=== PATIENT | female | born 1955 | race Caucasian/White ===

== ENCOUNTER 2017-10-09 18:13 | Emergency (ER) | payer OTHER, MEDICARE ==
[~2017-10-09] VITALS: Ht 162.6 cm; Wt 70.0 kg
[2017-10-09 18:18] VITALS: BP 128/68; PULSE 108; RESP 17; TEMP 98.2; O2SAT 99
[2017-10-09] MEDS ORDERED: FOLI400T PO (18:35)
[2017-10-09] MEDS ORDERED: METH0.35 (18:35)
[2017-10-09] MEDS ORDERED: PROP60 PO (18:35)
[2017-10-09] MEDS ORDERED: PRIL20TA2 PO (18:35)
[2017-10-09] MEDS ORDERED: ZANT150T2 PO (18:35)
[2017-10-09] MEDS ORDERED: ATEN50TA PO (18:35)
[2017-10-09] MEDS ORDERED: ZOFR4TAB PO (18:35)
[2017-10-09] MEDS ORDERED: AMLO5 PO (18:35)
[2017-10-09] MEDS ORDERED: LOMO2.5T PO (18:35)
[2017-10-09] MEDS ORDERED: PRED5TAB PO (18:35)
[2017-10-09 18:39] VITALS: BP 139/74; PULSE 105; RESP 18; O2SAT 98
[2017-10-09] MEDS ORDERED: SODIUM CHLOR 0.9% 1000 ML INJ 1,000 ML IV ONE (18:42)
[2017-10-09] MEDS ORDERED: SODIUM CHLORIDE 0.9% FLUSH 10 ML FLUSH IVF PRN (18:45)
[2017-10-09 19:07] VITALS: BP 139/74; PULSE 118; RESP 14; O2SAT 94
--- NOTE | 2017-10-09 19:09 | PD ---
HPI Chief Complaint: OD/ Ingestion Time Seen by Provider: 18:55 Travel History International Travel<30 days: No Contact w/Intl Traveler<30days: No Traveled to known affect area: No History of Present Illness HPI 62 YO F with PMH of lupus presents to the ED via EMS under Barone Act for evaluation of suicidal ideation. According to the Barone act paper work the patient took a bottle of sleeping pills and advised her that she did not wish to live anymore. On arrival the patient is somnolent, arouses to voice. She repeatedly asks "Where am I?" She is unable to provide any meaningful history. PFSH Past Medical History Medical History: Unable to Obtain Autoimmune Disease: Yes (lupus) Past Surgical History Surgical History: Unable to Obtain Social History Alcohol Use: Yes Tobacco Use: No Substance Use: No Allergies-Medications (Allergen,Severity, Reaction): Coded Allergies: No Known Allergies (Unverified , 10/09/17) Reported Meds & Prescriptions Reported Meds & Active Scripts Active Reported Prilosec (Omeprazole Magnesium) 20 Mg Tab Zantac (Ranitidine HCl) 150 Mg Tab 150 Mg PO BID Lomotil (Diphenoxylate-Atropine) 2.5-0.025 Mg Tab 1 Tab PO Q6H PRN Zofran (Ondansetron HCl) 4 Mg Tab 4 Mg PO Q12HR PRN Inderal LA 24 HR (Propranolol HCl) 60 Mg Cap 10 Mg PO DAILY Norvasc (Amlodipine Besylate) 5 Mg Tab 5 Mg PO DAILY Atenolol 50 Mg Tab 50 Mg PO BID Rasuvo (Methotrexate (Antirheumatic)) 20 Mg/0.4 Ml Inj Prednisone 5 Mg Tab 5 Mg PO BID Folic Acid 0.4 Mg Tab 1,000 Mcg PO DAILY Review of Systems Except as stated in HPI: all other systems reviewed are Neg Physical Exam Narrative GENERAL: Well-nourished, well-developed obese, somnolent white female in no acute distress. SKIN: Focused skin assessment warm/dry. HEAD: Normocephalic. EYES: No scleral icterus. No injection or drainage. Pupils 2-3 mm and reactive bilaterally. NECK: Supple, trachea midline. No JVD or lymphadenopathy. Patient is protecting her airway. CARDIOVASCULAR: Regular rate and rhythm without murmurs, gallops, or rubs. RESPIRATORY: Breath sounds clear and equal bilaterally. No accessory muscle use. GASTROINTESTINAL: Abdomen soft, non-tender, nondistended. Active bowel sounds. MUSCULOSKELETAL: No cyanosis, or edema. BACK: Nontender without obvious deformity. No CVA tenderness. Data Data Last Documented VS Vital Signs Date Time Temp Pulse Resp B/P (MAP) Pulse Ox O2 Delivery O2 Flow Rate FiO2 10/09/17 19:08 118 14 95 Room Air 10/09/17 19:07 139/74 (95) 10/09/17 18:18 98.2 Orders Orders Electrocardiogram (10/09/17 18:42) Complete Blood Count With Diff (10/09/17 18:42) Comprehensive Metabolic Panel (10/09/17 18:42) Urinalysis - C+S If Indicated (10/09/17 18:42) Iv Access Insert/Monitor (10/09/17 18:42) Ecg Monitoring (10/09/17 18:42) Oximetry (10/09/17 18:42) Sodium Chloride 0.9% Flush (Ns Flush) (10/09/17 18:45) Sodium Chlor 0.9% 1000 Ml Inj (Ns 1000 M (10/09/17 18:42) Call Poison Control (10/09/17 18:42) Drug Screen, Random Urine (10/09/17 18:42) Alcohol (Ethanol) (10/09/17 18:42) Salicylates (Aspirin) (10/09/17 18:42) Tylenol (Acetaminophen) (10/09/17 18:42) Psych Screen (10/09/17 18:42) Thyroid Stimulating Hormone (10/09/17 18:42) Cath For Specimen (10/09/17 18:53) Calcium Carbonate Chew (Tums Chew) (10/09/17 21:30) Diet Heart Healthy (10/09/17 Dinner) Labs Laboratory Tests Test 10/09/17 19:05 10/09/17 19:15 10/09/17 20:10 Blood Urea Nitrogen 16 MG/DL Creatinine 0.70 MG/DL Random Glucose 79 MG/DL Total Protein 6.0 GM/DL Albumin 3.3 GM/DL Calcium Level 7.6 MG/DL Alkaline Phosphatase 90 U/L Aspartate Amino Transf (AST/SGOT) 64 U/L Alanine Aminotransferase (ALT/SGPT) 47 U/L Total Bilirubin 0.4 MG/DL Sodium Level 145 MEQ/L Potassium Level 3.5 MEQ/L Chloride Level 113 MEQ/L Carbon Dioxide Level 20.0 MEQ/L Anion Gap 12 MEQ/L Estimat Glomerular Filtration Rate 85 ML/MIN Thyroid Stimulating Hormone 3rd Gen 0.909 uIU/ML Salicylates Level LESS THAN 1.7 MG/DL Acetaminophen Level LESS THAN 2.0 MCG/ML Ethyl Alcohol Level 253 MG/DL Urine Color YELLOW Urine Turbidity CLEAR Urine pH 5.0 Urine Specific [place] 1.016 Urine Protein NEG mg/dL Urine Glucose (UA) NEG mg/dL Urine Ketones NEG mg/dL Urine Occult Blood NEG Urine Nitrite NEG Urine Bilirubin NEG Urine Urobilinogen LESS THAN 2.0 MG/DL Urine Leukocyte Esterase NEG Urine WBC 1 /hpf Urine Hyaline Casts 41 /lpf Urine Mucus FEW /lpf Microscopic Urinalysis Comment CULT NOT INDICATED Urine Opiates Screen NEG Urine Barbiturates Screen NEG Urine Amphetamines Screen NEG Urine Benzodiazepines Screen POS Urine Cocaine Screen NEG Urine Cannabinoids Screen POS White Blood Count 4.1 TH/MM3 Red Blood Count 4.55 MIL/MM3 Hemoglobin 15.5 GM/DL Hematocrit 44.8 % Mean Corpuscular Volume 98.4 FL Mean Corpuscular Hemoglobin 34.1 PG Mean Corpuscular Hemoglobin Concent 34.7 % Red Cell Distribution Width 14.3 % Platelet Count 280 TH/MM3 Mean Platelet Volume 8.2 FL Neutrophils (%) (Auto) 50.2 % Lymphocytes (%) (Auto) 41.7 % Monocytes (%) (Auto) 5.8 % Eosinophils (%) (Auto) 0.9 % Basophils (%) (Auto) 1.4 % Neutrophils # (Auto) 2.1 TH/MM3 Lymphocytes # (Auto) 1.7 TH/MM3 Monocytes # (Auto) 0.2 TH/MM3 Eosinophils # (Auto) 0.0 TH/MM3 Basophils # (Auto) 0.1 TH/MM3 CBC Comment DIFF FINAL Differential Comment MDM Medical Decision Making Medical Screen Exam Complete: Yes Emergency Medical Condition: Yes Differential Diagnosis Intentional overdose versus metabolic derangement versus Adjustment disorder versus anxiety versus bipolar versus depression versus dementia versus electrolyte disorder versus malingering versus mood disorder versus ODD versus psychosis versus PTSD versus schizophrenia versus schizoaffective disorder versus substance-induced mood disorder versus other Narrative Course 62-year-old female presents to the ED via EMS under Barone act after taking unknown quantity of benzodiazepines an attempt to end her life. Temp 98 2, pulse 108, respiratory rate 17, pulse ox 98% on room air, BP 128/68 on arrival. On exam the patient is somnolent, arouses easily to voice. She looks around the room and repeatedly asks "Where am I?" She is unable to provide any meaningful history. IV was established. Patient was administered 1 L normal saline. Present control was called and requested the patient continued to be monitored. EKG rate 114, sinus tachycardia with short TN interval. TN interval 1:15, QRS 81, QTc 402 ms. No axis. No acute ST changes. Reviewed by Dr. Danielson. CBC: CBC 4.1. Hemoglobin 15.5. CMP: BUN 16, creatinine 0.70. Calcium 7.6. UA: No culture indicated. Tox screen positive for alcohol of 253, diazepam and cannabinoids. On recheck the patient is more alert. Her has her hearing aids at bedside and we're able to converse. She states that she has a history of lupus NRA and has been seeing the same position for approximately 20 years. That Physician retired in June and the patient is having difficulty finding a new provider. She states that she was taking pain medications for a long period of time and now is unable to procure these. She states that she called 20 doctors looking for a new physician and her insurance company as well. She states that she felt very defeated and down and that is why she took the medications. She denies previous suicide attempt or history of depression. She denies suicidal ideation at this time. She is requesting food and drink. This was provided. We'll continue to monitor the patient until vitals normalize. She is medically cleared for psychiatric evaluation. Diagnosis Primary Impression: Intentional benzodiazepine overdose Qualified Codes: T42.4X2A - Poisoning by benzodiazepines, intentional self- harm, initial encounter Amanda Vogel Oct 09, 2017 19:09
[2017-10-09 19:41] LABS: ALT (GPT) 47 U/L (10-53)
[2017-10-09 19:51] LABS: ALBUMIN 3.3 GM/DL (3.4-5.0); AST (GOT) 64 U/L (15-37); BLOOD UREA NITROGEN 16 MG/DL (7-18); CALCIUM 7.6 MG/DL (8.5-10.1); CHLORIDE 113 MEQ/L (98-107); GLOMERULAR FILTRATION RATE 85 ML/MIN (>89); GLUCOSE,RANDOM 79 MG/DL (74-106); SODIUM (NA) 145 MEQ/L (136-145)
[2017-10-09 19:52] LABS: ACETAMINOPHEN LESS THAN 2.0 MCG/ML (10.0-30.0); ALKALINE PHOSPHATASE 90 U/L (45-117); TOTAL BILIRUBIN ADULT 0.4 MG/DL (0.2-1.0)
[2017-10-09 20:25] LABS: BILIRUBIN, URINE NEG (NEG); BLOOD, URINE NEG (NEG); GLUCOSE,URINE NEG (NEG); HYALINE CAST, URINE 41 /lpf (RARE); KETONE, URINE NEG (NEG); MUCUS URINE FEW /lpf (OCC); NITRITE,URINE NEG (NEG); URINE COLOR YELLOW (YELLW/STRAW); URINE LEUKOCYTE ESTERASE NEG (NEG)
[2017-10-09 20:32] LABS: AUTOMATED NEUTROPHIL # 2.1 TH/MM3 (1.8-7.7); BASOPHIL # 0.1 TH/MM3 (0-0.2); BASOPHIL % 1.4 % (0.0-2.0); EOSINOPHIL % 0.9 % (0.0-4.0); HEMATOCRIT 44.8 % (35.0-46.0); HEMOGLOBIN 15.5 GM/DL (11.6-15.3); LYMPH % 41.7 % (9.0-44.0); LYMPHOCYTE # 1.7 TH/MM3 (1.0-4.8); MEAN CELL VOLUME 98.4 FL (80.0-100.0); MEAN CORPUSCULAR HEMOGLOBIN 34.1 PG (27.0-34.0); MEAN CORPUSCULAR HGB CONC 34.7 % (32.0-36.0); MEAN PLATELET VOLUME 8.2 FL (7.0-11.0); MONO % 5.8 % (0.0-8.0); MONOCYTE # 0.2 TH/MM3 (0-0.9); NEUT % 50.2 % (16.0-70.0); PLATELET COUNT 280 TH/MM3 (150-450); RED BLOOD COUNT 4.55 MIL/MM3 (4.00-5.30); RED CELL DISTRIBUTION WIDTH 14.3 % (11.6-17.2); WHITE BLOOD COUNT 4.1 TH/MM3 (4.0-11.0)
[2017-10-09] MEDS ORDERED: CALCIUM CARBONATE 500 MG CHEWABLE TAB CHEW ONE (21:30)
--- NOTE | 2017-10-09 22:22 | PD ---
Physical Exam Narrative I, Dr. Danielson, have reviewed the advance practice practitioner's documentation and am in agreement, met with the patient face to face, made the diagnosis, and the medical decision making was done by me. *My assessment and Findings: Suicidal attempt vs. overdose 62yo F here under barajas act after suicidal attempt by taking 10 pill so tamezepine 30mg PO at 2pm today. Said she was tire of living. Pt was initially very sleepy and mumbles but moves all extremities. Pt given NS IVF and reevaluated at bedside. Pt is now much more awake and answering questions. Labs reviewed, no leukocytosis. Hypochloremia at 113. TSH normal. Blood alcohol elevated at 253. Acetaminophen negative. Salicylate negative. Utox positive for benzodiazepine and cannabinoids. UA negative. Calcium low and replaced. HR is now in the 90s. Pt is medically clear for psych evaluation. Data Data Last Documented VS Vital Signs Date Time Temp Pulse Resp B/P (MAP) Pulse Ox O2 Delivery O2 Flow Rate FiO2 10/09/17 19:08 118 14 95 Room Air 10/09/17 19:07 139/74 (95) 10/09/17 18:18 98.2 Orders Orders Electrocardiogram (10/09/17 18:42) Complete Blood Count With Diff (10/09/17 18:42) Comprehensive Metabolic Panel (10/09/17 18:42) Urinalysis - C+S If Indicated (10/09/17 18:42) Iv Access Insert/Monitor (10/09/17 18:42) Ecg Monitoring (10/09/17 18:42) Oximetry (10/09/17 18:42) Sodium Chloride 0.9% Flush (Ns Flush) (10/09/17 18:45) Sodium Chlor 0.9% 1000 Ml Inj (Ns 1000 M (10/09/17 18:42) Call Poison Control (10/09/17 18:42) Drug Screen, Random Urine (10/09/17 18:42) Alcohol (Ethanol) (10/09/17 18:42) Salicylates (Aspirin) (10/09/17 18:42) Tylenol (Acetaminophen) (10/09/17 18:42) Psych Screen (10/09/17 18:42) Thyroid Stimulating Hormone (10/09/17 18:42) Cath For Specimen (10/09/17 18:53) Calcium Carbonate Chew (Tums Chew) (10/09/17 21:30) Diet Heart Healthy (10/09/17 Dinner) Labs Laboratory Tests Test 10/09/17 19:05 10/09/17 19:15 10/09/17 20:10 Blood Urea Nitrogen 16 MG/DL Creatinine 0.70 MG/DL Random Glucose 79 MG/DL Total Protein 6.0 GM/DL Albumin 3.3 GM/DL Calcium Level 7.6 MG/DL Alkaline Phosphatase 90 U/L Aspartate Amino Transf (AST/SGOT) 64 U/L Alanine Aminotransferase (ALT/SGPT) 47 U/L Total Bilirubin 0.4 MG/DL Sodium Level 145 MEQ/L Potassium Level 3.5 MEQ/L Chloride Level 113 MEQ/L Carbon Dioxide Level 20.0 MEQ/L Anion Gap 12 MEQ/L Estimat Glomerular Filtration Rate 85 ML/MIN Thyroid Stimulating Hormone 3rd Gen 0.909 uIU/ML Salicylates Level LESS THAN 1.7 MG/DL Acetaminophen Level LESS THAN 2.0 MCG/ML Ethyl Alcohol Level 253 MG/DL Urine Color YELLOW Urine Turbidity CLEAR Urine pH 5.0 Urine Specific [place] 1.016 Urine Protein NEG mg/dL Urine Glucose (UA) NEG mg/dL Urine Ketones NEG mg/dL Urine Occult Blood NEG Urine Nitrite NEG Urine Bilirubin NEG Urine Urobilinogen LESS THAN 2.0 MG/DL Urine Leukocyte Esterase NEG Urine WBC 1 /hpf Urine Hyaline Casts 41 /lpf Urine Mucus FEW /lpf Microscopic Urinalysis Comment CULT NOT INDICATED Urine Opiates Screen NEG Urine Barbiturates Screen NEG Urine Amphetamines Screen NEG Urine Benzodiazepines Screen POS Urine Cocaine Screen NEG Urine Cannabinoids Screen POS White Blood Count 4.1 TH/MM3 Red Blood Count 4.55 MIL/MM3 Hemoglobin 15.5 GM/DL Hematocrit 44.8 % Mean Corpuscular Volume 98.4 FL Mean Corpuscular Hemoglobin 34.1 PG Mean Corpuscular Hemoglobin Concent 34.7 % Red Cell Distribution Width 14.3 % Platelet Count 280 TH/MM3 Mean Platelet Volume 8.2 FL Neutrophils (%) (Auto) 50.2 % Lymphocytes (%) (Auto) 41.7 % Monocytes (%) (Auto) 5.8 % Eosinophils (%) (Auto) 0.9 % Basophils (%) (Auto) 1.4 % Neutrophils # (Auto) 2.1 TH/MM3 Lymphocytes # (Auto) 1.7 TH/MM3 Monocytes # (Auto) 0.2 TH/MM3 Eosinophils # (Auto) 0.0 TH/MM3 Basophils # (Auto) 0.1 TH/MM3 CBC Comment DIFF FINAL Differential Comment MDM Supervised Visit with LES: Yes Diagnosis Primary Impression: Overdose Qualified Codes: T50.902A - Poisoning by unspecified drugs, medicaments and biological substances, intentional self-harm, initial encounter Mary Danielson DO Oct 09, 2017 22:22
[2017-10-09 23:38] VITALS: BP 150/73; PULSE 91; RESP 14; O2SAT 95
[2017-10-10 03:43] VITALS: BP 120/65; PULSE 98; RESP 16; O2SAT 96
[2017-10-10 08:00] VITALS: BP 148/68; PULSE 110; RESP 16; O2SAT 98
[2017-10-10 11:00] VITALS: BP 174/86; PULSE 116; RESP 16; O2SAT 98
[2017-10-10] MEDS ORDERED: PROP10TA6 PO (13:53)
[2017-10-10] MEDS ORDERED: REST30CA PO (13:54)
[2017-10-10] MEDS ORDERED: SOMA350T PO (13:55)
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
[2017-10-10 15:24] VITALS: PULSE 68
--- NOTE | 2017-10-10 15:34 | PD ---
Physical Exam Date Seen by Provider: Oct 10, 2017 Time Seen by Provider: 15:32 Data Data Last Documented VS Vital Signs Date Time Temp Pulse Resp B/P (MAP) Pulse Ox O2 Delivery O2 Flow Rate FiO2 10/10/17 15:24 68 10/10/17 11:00 16 98 Room Air 10/09/17 18:18 98.2 Orders Orders Electrocardiogram (10/09/17 18:42) Complete Blood Count With Diff (10/09/17 18:42) Comprehensive Metabolic Panel (10/09/17 18:42) Urinalysis - C+S If Indicated (10/09/17 18:42) Iv Access Insert/Monitor (10/09/17 18:42) Ecg Monitoring (10/09/17 18:42) Oximetry (10/09/17 18:42) Sodium Chloride 0.9% Flush (Ns Flush) (10/09/17 18:45) Sodium Chlor 0.9% 1000 Ml Inj (Ns 1000 M (10/09/17 18:42) Call Poison Control (10/09/17 18:42) Drug Screen, Random Urine (10/09/17 18:42) Alcohol (Ethanol) (10/09/17 18:42) Salicylates (Aspirin) (10/09/17 18:42) Tylenol (Acetaminophen) (10/09/17 18:42) Psych Screen (10/09/17 18:42) Thyroid Stimulating Hormone (10/09/17 18:42) Cath For Specimen (10/09/17 18:53) Calcium Carbonate Chew (Tums Chew) (10/09/17 21:30) Diet Heart Healthy (10/09/17 Dinner) Ed Discharge Order (10/10/17 15:31) Labs Laboratory Tests Test 10/09/17 19:05 10/09/17 19:15 10/09/17 20:10 Blood Urea Nitrogen 16 MG/DL Creatinine 0.70 MG/DL Random Glucose 79 MG/DL Total Protein 6.0 GM/DL Albumin 3.3 GM/DL Calcium Level 7.6 MG/DL Alkaline Phosphatase 90 U/L Aspartate Amino Transf (AST/SGOT) 64 U/L Alanine Aminotransferase (ALT/SGPT) 47 U/L Total Bilirubin 0.4 MG/DL Sodium Level 145 MEQ/L Potassium Level 3.5 MEQ/L Chloride Level 113 MEQ/L Carbon Dioxide Level 20.0 MEQ/L Anion Gap 12 MEQ/L Estimat Glomerular Filtration Rate 85 ML/MIN Thyroid Stimulating Hormone 3rd Gen 0.909 uIU/ML Salicylates Level LESS THAN 1.7 MG/DL Acetaminophen Level LESS THAN 2.0 MCG/ML Ethyl Alcohol Level 253 MG/DL Urine Color YELLOW Urine Turbidity CLEAR Urine pH 5.0 Urine Specific [place] 1.016 Urine Protein NEG mg/dL Urine Glucose (UA) NEG mg/dL Urine Ketones NEG mg/dL Urine Occult Blood NEG Urine Nitrite NEG Urine Bilirubin NEG Urine Urobilinogen LESS THAN 2.0 MG/DL Urine Leukocyte Esterase NEG Urine WBC 1 /hpf Urine Hyaline Casts 41 /lpf Urine Mucus FEW /lpf Microscopic Urinalysis Comment CULT NOT INDICATED Urine Opiates Screen NEG Urine Barbiturates Screen NEG Urine Amphetamines Screen NEG Urine Benzodiazepines Screen POS Urine Cocaine Screen NEG Urine Cannabinoids Screen POS White Blood Count 4.1 TH/MM3 Red Blood Count 4.55 MIL/MM3 Hemoglobin 15.5 GM/DL Hematocrit 44.8 % Mean Corpuscular Volume 98.4 FL Mean Corpuscular Hemoglobin 34.1 PG Mean Corpuscular Hemoglobin Concent 34.7 % Red Cell Distribution Width 14.3 % Platelet Count 280 TH/MM3 Mean Platelet Volume 8.2 FL Neutrophils (%) (Auto) 50.2 % Lymphocytes (%) (Auto) 41.7 % Monocytes (%) (Auto) 5.8 % Eosinophils (%) (Auto) 0.9 % Basophils (%) (Auto) 1.4 % Neutrophils # (Auto) 2.1 TH/MM3 Lymphocytes # (Auto) 1.7 TH/MM3 Monocytes # (Auto) 0.2 TH/MM3 Eosinophils # (Auto) 0.0 TH/MM3 Basophils # (Auto) 0.1 TH/MM3 CBC Comment DIFF FINAL Differential Comment [facility] Medical Record Reviewed: Yes Supervised Visit with LES: No Narrative Course 62-year-old female presented previously under Barone act for evaluation of suicidal ideation with overdose. Patient took a handful of benzodiazepines. She was monitored in the ED and medically cleared. Her vital signs been stable since then. Patient was seen by psychiatrist and Barone act was lifted. She has not felt to be a threat to herself or others at this time. She was given outpatient resources. Diagnosis Primary Impression: Intentional benzodiazepine overdose Qualified Codes: T42.4X2A - Poisoning by benzodiazepines, intentional self- harm, initial encounter Referrals: [facility] (Out patient) Additional Instruction: Follow-up per psychiatrist's recommendations. Return to the emergency room for worsening symptoms. Disposition: 01 DISCHARGE HOME Condition: Stable Mindi Schroeder Oct 10, 2017 15:34
--- NOTE | 2017-10-10 20:05 | EKG ---
Date Performed: 10/09/2017 Time Performed: 18:22:38 PTAGE: 62 years EKG: SINUS TACHYCARDIA WITH SHORT MS INTERVAL MODERATE ST DEPRESSION ABNORMAL ECG NO PREVIOUS TRACING DOCTOR: Radha Leon Interpretating Date/Time 10/10/2017 20:05:00
== END 2017-10-10 16:45 | disposition home or self-care (01) ==
LOC: NEPE 18:13 → NEPJ 10-10 16:45
DX: T42.4X2A Poisoning by benzodiazepines, intentional self-harm, initial encounter (principal); F12.10 Cannabis abuse, uncomplicated; M32.9 Systemic lupus erythematosus, unspecified; R00.0 Tachycardia, unspecified; R94.31 Abnormal electrocardiogram [ECG] [EKG]; Z79.899 Other long term (current) drug therapy
CPT/HCPCS: 80053; 80307; 81001; 84443; 85025; 93005; 96360; 99284; J7030; P9612